=== PATIENT | male | born 1980 | race Caucasian/White ===

== ENCOUNTER 2020-04-01 11:29 | Emergency (ER) | payer OTHER, SELFPAY ==
--- NOTE | ~2020-04-01 | XR_ITS ---
EXAMINATION: XR chest 1V portable EXAM DATE: 04/01/2020 11:53 INDICATION: Shortness of breath. COVID positive. TECHNIQUE: Portable AP frontal chest x-ray was obtained. Comparison is made to prior examination from 11/03/2017. FINDINGS: Ill-defined nonconfluent right upper lobe airspace disease new compared to prior study, pro bably acute infectious process, clinical correlation. The lungs are otherwise clear. There are no pl eural effusions. The cardiomediastinal silhouette is within normal limits. There is no pneumothorax suspected. The bones and soft tissues are unremarkable. IMPRESSION: Patchy right upper lobe peripheral acute airspace disease. Reviewed, dictated and finalized at location A. ER ASSOCIATE
[2020-04-01 11:36] VITALS: BP 141/95; PULSE 80; RESP 18; TEMP 36.4; O2SAT 100
--- NOTE | 2020-04-01 13:17 | ED.GENADULT ---
HPI - General Adult General Chief complaint: Upper Respiratory Infection Stated complaint: covid +/low oxygen sat Time Seen by Provider: 04/01/20 12:04 History of Present Illness HPI narrative: Patient is a 40-year-old male who presents the ER with a low pulse oximetry reading. Reports at home he has a home pulse oximeter and he has had occasional readings in the 80s. He was diagnosed with COVID-19 11 days ago and has been trying to get cleared by the health department. Denies any new fevers or sweats or chills. He has had a cough that has been for the most part nonproductive. He feels like he has some congestion within his chest that he cannot fully evacuate. He has been using albuterol every 2-4 hours to help with his breathing. Related Data Home Medications Medication Instructions Recorded Confirmed cetirizine 10 mg tablet 10 mg PO DAILY 04/07/19 11/09/19 clomiphene citrate 50 mg tablet 25 mg PO DAILY tablet 04/07/19 11/09/19 esomeprazole magnesium 40 mg 40 mg PO DAILY 04/07/19 11/09/19 capsule,delayed release tadalafil 5 mg tablet 5 mg PO DAILY 04/07/19 11/09/19 Allergies Allergy/AdvReac Type Severity Reaction Status Date / Time clarithromycin Allergy Mild RECTAL Verified 11/09/19 08:38 BLEEDING fluticasone Allergy Unknown Unknown Verified 11/09/19 08:38 montelukast Allergy Unknown headaches Verified 11/09/19 08:38 salmeterol [Advair Diskus] Allergy Unknown Unknown Verified 11/09/19 08:38 ANESTHESIA Allergy Unknown Vomiting Uncoded 11/09/19 08:38 for days Review of Systems Review of Systems: All systems reviewed & are unremarkable except as noted in HPI and below Constitutional: Constitutional: Denies chills, Denies fever(s) and Denies weakness ENT: Denies nasal congestion and Denies sore throat Respiratory: Respiratory: Reports chest congestion, Reports cough, Reports dyspnea and Denies wheezing Gastrointestinal: Gastrointestinal: Denies abdominal pain, Denies nausea and Denies vomiting PMFSH Past Medical History Medical History (Updated 04/01/20 @ 13:30 by Cullen Devi MD) Benign hypertension H/O pyloric stenosis Hypogonadism Testicular cancer Surgical History Surgical History (Updated 04/01/20 @ 13:30 by Cullen Devi MD) H/O sinus surgery H/O splenectomy History of orchiectomy Hx of cholecystectomy Family History Family History Mother Heart disease Grandparent Breast cancer Mother Diabetes mellitus Hypertension Family history of elevated blood lipids Grandparent Carcinoma of colon Malignant neoplasm of prostate Father Colon polyp Other Family history of arthritis Family history of cardiovascular disease Social History Social History Smoking status: Never smoker Alcohol intake: never Substance use: never Gender identity (if verbalized by the patient): Male Agree to blood products: Yes Exam Narrative: Exam Narrative: GENERAL: Well-appearing, well-nourished, and in no acute distress. HEAD: Normocephalic, atraumatic. CHEST: Clear to auscultation. No respiratory distress. HEART: Regular rate and rhythm. Normal peripheral pulses. ABDOMEN: Soft, nontender, nondistended. EXTREMITIES: Normal range of motion. No edema. SKIN: Warm, dry, no rash. NEURO: Alert and oriented x3. PSYCH: Normal mood and affect. Course Course Emergency Course: Patient informed results. Feel he developed a secondary pneumonia related to his COVID-19 infection. Will be started on azithromycin which she reports he can tolerate without issue. Vital Signs Vital signs: Vital Signs Temperature 97.6 F 04/01/20 11:36 Pulse Rate 80 04/01/20 11:36 Respiratory Rate 18 04/01/20 11:36 Blood Pressure 141/95 H 04/01/20 11:36 Pulse Oximetry 100 04/01/20 11:36 Temperature 97.6 F 04/01/20 11:36 Pulse Rate 80 04/01/20 11:36 Respirat
[2020-04-01 13:34] VITALS: BP 145/97; PULSE 74; RESP 17; O2SAT 95
== END 2020-04-01 13:35 | disposition home or self-care (01) ==
PROVIDERS: Emergency Provider Emergency Medicine; PCP Family Medicine
DX: U07.1 COVID-19 (principal); J12.89 Other viral pneumonia; I10 Essential (primary) hypertension; Z85.47 Personal history of malignant neoplasm of testis; Z90.81 Acquired absence of spleen; Z90.79 Acquired absence of other genital organ(s)
CPT/HCPCS: 71045; 99283

== ENCOUNTER → 2020-04-18 11:12 | Outpatient (CLI) | payer OTHER, SELFPAY ==
--- NOTE | ~2020-04-18 | XR_ITS ---
XR chest 2V DATE: 04/18/2020 11:49 INDICATION: Wheezing TECHNIQUE: 2 views COMPARISON: 04/01/2020 portable AP chest FINDINGS: There is minimal residual infiltrate or atelectasis in the right upper lobe, substantially improved since 04/01/2020. Otherwise no pulmonary infiltrate or consolidation, pleural effusion or pu lmonary vascular congestion or pneumothorax. Normal heart size. No hilar or mediastinal enlargement. IMPRESSION: Nearly complete resolution right upper lobe infiltrate since 04/01/2020 Reviewed, dictated and finalized at location A. AL ASSISTANT INSTRUCTOR IMPRESSION: Nearly complete resolution right upper lobe infiltrate since 2019
== END ==
PROVIDERS: PCP Family Medicine; Visit Provider Family Medicine
DX: J18.9 Pneumonia, unspecified organism (principal); R06.2 Wheezing; R91.8 Other nonspecific abnormal finding of lung field
CPT/HCPCS: 71046

== ENCOUNTER → 2020-08-08 09:37 | Outpatient (CLI) | payer OTHER, SELFPAY ==
--- NOTE | ~2020-08-08 | XR_ITS ---
EXAMINATION: XR chest 2V 08/08/2020 09:53 INDICATION: Shortness of breath PROCEDURE: 2 view chest COMPARISON: 04/18/2020 FINDINGS: The lungs are clear. The cardiomediastinal silhouette is within normal limits. There are no pleural effusions. There is no pneumothorax suspected. IMPRESSION: 1: NO ACUTE CARDIOPULMONARY DISEASE. Reviewed, dictated and finalized at location B.
== END ==
PROVIDERS: PCP Family Medicine; Visit Provider Physician Assistant
DX: R06.02 Shortness of breath (principal)
CPT/HCPCS: 71046

== ENCOUNTER 2020-09-13 09:27 | Outpatient (CLI) | payer OTHER, SELFPAY ==
--- NOTE | 2020-09-13 12:43 | WPDPFTINT ---
PFT Procedure Performed PFT Procedure Performed Spirometry with Pre/Post Bronchodilator Plethysmography (Lung Vol) Diffusing Cap (DLCO) Flow Vol Loop PFT Interpretation This is a pulmonary function test with pre and post-bronchodilator spirometry, plethysmography and diffusing capacity. The test was performed and results interpreted in accordance with the 2019 and 2005 ATS/ERS Task Force guidelines respectively using the Global Lung Function Initiative-2012 reference equations. Patient demonstrated good effort and cooperation. Reproducibility criteria were met. The quality of the pre bronchodilator spirometry maneuver was Grade C and post bronchodilator spirometry maneuver was Grade A. Findings: Spirometry: Contour the inspiratory and expiratory flow tracing are normal. The pre bronchodilator FVC is 4.75 L, 88% predicted. The pre bronchodilator FEV1 is 3.69 L, 86% predicted. The FEV1: FVC ratio 78%. The post bronchodilator FEV1 is 5.02 representing a 6% increase. The post bronchodilator FEV1 is 4.14 L, representing a 12% increase. Plethysmography: The total lung capacity is 6.07 L, 85% predicted. The functional residual capacity is 1.95 L, 55% predicted. The residual volume is 1.29 L, 68% predicted. Diffusing capacity: The absolute diffusion capacity is 26.5, 80% predicted. The diffusing capacity corrected for alveolar volume is 4.58, 96% predicted. Impression: The spirometry is normal without evidence of an obstructive abnormality. There is significant improvement after inhaling a single dose of albuterol. There is a decreased functional residual capacity with a normal total lung capacity. This is an abnormal but nonspecific lung volume pattern. The diffusing capacity is normal. There are no prior studies for comparison
== END 2020-09-13 09:28 | disposition home or self-care (01) ==
PROVIDERS: PCP Family Medicine; Visit Provider Allergy & Immunology
DX: J45.40 Moderate persistent asthma, uncomplicated (principal)
CPT/HCPCS: 94060; 94726; 94729

== ENCOUNTER 2021-11-22 10:08 | Emergency (ER) | payer OTHER, SELFPAY ==
[2021-11-22] VITALS (21 sets, daily range): BP systolic 125–146; BP diastolic 85–99; PULSE 73–96; RESP 13–32; TEMP 36.4; O2SAT 94–99
--- NOTE | ~2021-11-22 | CT_ITS ---
EXAMINATION: CTA chest PE protocol DATE: 11/22/2021 14:23 INDICATION: Chest pain/discomfort TECHNIQUE: Computed tomography (CT) pulmonary angiogram of the chest was performed with 100 mL Omnipa que-350 intravenous contrast. Additional 3D reconstructions utilizing coronal maximum intensity proje ction (MIP) were performed. Automated exposure control and iterative reconstruction technique were em ployed. The dose-length product was 515.82 mGy-cm. COMPARISON: 03/17/2019 FINDINGS: Good contrast opacification of the pulmonary arteries. There is mild streak artifact from dense contr ast in the superior vena cava and right atrium. Mild scattered respiratory motion artifact most promi nent at the lung bases which does not significantly limit evaluation. No pulmonary embolism. Linear d iscoid atelectasis in the right middle lobe and in the left lower lobe. No pneumonia, pulmonary edema , pleural effusion or pneumothorax. Heart size is normal. No pericardial effusion. Thoracic aorta is normal in caliber with no dissection. No pathologically enlarged thoracic lymphadenopathy. Absent spl een. Cholecystectomy clips at the gallbladder fossa. Mild thoracolumbar spondylosis with likely physi ologic mild anterior wedging at T12 and L1. IMPRESSION: 1. Mild discoid atelectasis in the right middle and left lower lobes. No pulmonary embolism or other acute cardiopulmonary disease. Reviewed, dictated and finalized at location B. IMPRESSION: 1. Mild discoid atelectasis in the right middle and left lower lobes. No pulmon zackery embolism or other acute cardiopulmonary disease.
--- NOTE | ~2021-11-22 | XR_ITS ---
EXAMINATION: XR chest 2V DATE: 11/22/2021 10:33 INDICATION: Chest pain TECHNIQUE: PA and lateral views of the chest were obtained. COMPARISON: Chest radiograph dated 08/08/2020 FINDINGS: Linear discoid atelectasis at the lingula and right middle lobe. No other airspace opacities, pulmona ry edema, pleural effusion or pneumothorax. The cardiomediastinal silhouette is normal. Cholecystecto my clips in right upper quadrant. Mild spondylosis at the thoracolumbar junction. IMPRESSION: 1. Mild discoid atelectasis at the lingula and right middle lobe. Reviewed, dictated and finalized at location B.
--- NOTE | 2021-11-22 10:10 | ECG_ITS ---
Measurements Intervals Clarinda Rate: 88 P: 34 ME: 140 QRS: 9 QRSD: 96 T: 30 QT: 349 QTc: 423 Interpretive Statements SINUS RHYTHM DELAYED PRECORDIAL R/S TRANSITION MINIMAL Q WAVES- HIGH LATERAL LEADS BORDERLINE ECG Electronically Signed On 11-22-2021 11:10:57 CDT by Mega Kulkarni D.O.
--- NOTE | 2021-11-22 10:23 | ED.CHESTPAIN ---
HPI - Chest Pain General Chief Complaint: Chest Pain <Lor Summers PA-C - Last Filed: 11/22/21 19:16> Stated Complaint: chest pressure since last <Lor Summers PA-C - Last Filed: 11/22/21 19:16> Time Seen by Provider: 11/22/21 10:22 <Lor Summers PA-C - Last Filed: 11/22/21 19:16> Source: patient <Lor Summers PA-C - Last Filed: 11/22/21 19:16> Mode of arrival: ambulatory <VAUGHN Mccartney Last Filed: 11/22/21 19:16> Limitations: no limitations <VAUGHN Mccartney Last Filed: 11/22/21 19:16> History of Present Illness HPI narrative: Patient is a 41-year-old male who presents the ED with report of chest discomfort. Patient reports a history of SVT and last had an episode of this about 6 months ago. He does see Dr. Pendleton and saw him last week for routine appointment. He did not have any complaints at that time. Patient returned home from a long distance driving vacation with his family around 11/12. He states over the last couple days, he has had intermittent episodes of brief palpitations, only lasting a few seconds at a time. No chest discomfort with these episodes. Last night, around 5 PM he experienced an episode of palpitations, which he states lasted longer than usual, about 10 to 15 minutes. He noted his heart rate to be in the 90s per his apple watch at that time. He did experience chest heaviness/pressure/discomfort with this episode. Present in midsternal chest, radiates to his right-sided chest and up into his neck. He reported having persistent discomfort in his chest upon waking up this morning and with exerting himself, which prompted him to come to the ED for further evaluation. He also reports having some dyspnea on exertion. Denies any recent cough, abdominal pain, nausea, vomiting, fever, chills, back pain, BLE pain or edema, history of blood clots. Hx of HTN, no DM, HLD, smoking. <VAUGHN Mccartney Last Filed: 11/22/21 19:16> Related Data Home Medications: Home Medications Medication Instructions Recorded Confirmed cetirizine 10 mg tablet (Zyrtec) 10 mg PO DAILY 04/07/19 09/21/21 clomiphene citrate 50 mg tablet 25 mg PO DAILY 04/07/19 09/21/21 esomeprazole magnesium 40 mg 40 mg PO BID 04/07/19 09/21/21 capsule,delayed release (Nexium) fluticasone furoate 200 1 inh inhalation Q24H 05/21/21 09/21/21 mcg/actuation blister powder for inhalation (Arnuity Ellipta) losartan 25 mg tablet 50 mg PO DAILY 06/29/21 09/21/21 <Lor Summers PA-C - Last Filed: 11/22/21 19:16> Allergies/Adverse Reactions: Allergies Allergy/AdvReac Type Severity Reaction Status Date / Time clarithromycin Allergy Mild RECTAL Verified 11/22/21 10:51 BLEEDING fluticasone Allergy Unknown Unknown Verified 11/22/21 10:51 montelukast Allergy Unknown headaches Verified 11/22/21 10:51 salmeterol [Advair Diskus] Allergy Unknown Unknown Verified 11/22/21 10:51 ANESTHESIA Allergy Unknown Vomiting Uncoded 09/21/21 09:39 for days <Lor Summers PA-C - Last Filed: 11/22/21 19:16> Review of Systems Review of Systems: CONSTITUTIONAL: Denies fever, chills, or sweats. CARDIOVASCULAR: Reports midsternal chest pain, palpitations. Denies BLE edema. RESPIRATORY: Reports WOLF. Denies cough. GASTROINTESTINAL: Denies abdominal pain, nausea, vomiting. MUSCULOSKELETAL: Denies back pain, BLE pain. NEUROLOGIC: Denies headache, numbness, or weakness. <Lor Summers PA-C - Last Filed: 11/22/21 19:16> All systems reviewed & are unremarkable except as noted in HPI and below <Lor Summers PA-C - Last Filed: 11/22/21 19:16> [facility] Past Medical History Medical History: Medical History (Updated 11/22/21 @ 15:16 by Lor Summers PA-C) Benign hypertension H/O pyloric stenosis History of PSVT (paroxysmal supraventricular tachycardia) Hypogonadism Testicular cancer <Lor Summers PA-C - Last Filed: 11/22/21 19:16> Surgical History Surgical Hist
[2021-11-22] MEDS: ASPIRIN 81 MG CHEWABLE TABLET 324 MG PO (10:58)
[2021-11-22 11:08] LABS: Basophils Absolute Auto 0.1 K/mm3 (0.0-0.1); Basophils Percent Auto 0.7 % (0.2-1.2); Eosinophils Absolute Auto 0.1 K/mm3 (0-0.3); Eosinophils Percent Auto 0.8 % (0-4.4); Hematocrit 39.7 % (42.0-52.0); Hemoglobin 12.9 g/dL (14.0-18.0); Immature Granulocyte Absolute 0.03 K/mm3 (0.00-0.031); Immature Granulocyte Percent A 0.4 % (0-0.5); Lymphocytes Absolute Auto 2.97 K/mm3 (0.9-3.2); Mean Corpuscular HGB Conc 32.5 g/dl (32-36); Mean Corpuscular Volume 89.2 fl (80-100); Mean Platelet Volume 9.2 fl (7.4-10.4); Monocytes Absolute Auto 1.2 K/mm3 (0.1-0.6); Monocytes Percent Auto 14.8 % (2.6-8.5); Neutrophils Absolute Auto 3.9 K/mm3 (1.3-6.7); Neutrophils Percent Auto 47.3 % (45.5-73.1); Platelet Count Result 460 k/mm3 (150-375); Red Blood Count 4.45 M/mm3 (4.6-6.20); Red Cell Distribution Width 13.6 % (11.5-14.5); White Blood Count 8.3 K/mm3 (4.5-10.0)
[2021-11-22 11:21] LABS: Prothrombin Time 13.2 Seconds (11.1-14.7)
[2021-11-22 11:22] LABS: Partial Thromboplastin Time 26.2 SECONDS (22.3-36.8)
[2021-11-22 11:25] LABS: Alanine Aminotransferase 26 U/L (6-50); Albumin Level 4.2 g/dL (3.5-5.1); Alkaline Phosphatase 69 U/L (38-126); Anion Gap 5 mmol/L (8-16); Aspartate Amino Transferase 23 U/L (17-59); Bilirubin,Total 0.3 mg/dL (0.2-1.3); Blood Urea Nitrogen 11 mg/dL (9-20); Calcium 8.9 mg/dL (8.4-10.2); Carbon Dioxide 28 mmol/L (22-30); Chloride 104 mmol/L (98-107); Estimated CRCL calculation 91 ml/min; Estimated Glomerular Filt Rate > 60; Glucose 102 mg/dL (65-110); Lipase 91 U/L (23-300); Potassium 3.9 mmol/L (3.4-5.0); Sodium 137 mmol/L (137-145)
[2021-11-22 11:39] LABS: Troponin I < 0.012 ng/mL (0.000-0.034)
[2021-11-22 12:04] LABS: D Dimer 0.46 ug/mL (<0.48)
[2021-11-22 13:29] LABS: Troponin I < 0.012 ng/mL (0.000-0.034)
== END 2021-11-22 15:30 | disposition home or self-care (01) ==
PROVIDERS: Emergency Provider Emergency Medicine; PCP Family Medicine
DX: R07.89 Other chest pain (principal); R00.2 Palpitations; I10 Essential (primary) hypertension; Z85.47 Personal history of malignant neoplasm of testis; Z90.81 Acquired absence of spleen; Z90.79 Acquired absence of other genital organ(s); R94.31 Abnormal electrocardiogram [ECG] [EKG]
CPT/HCPCS: 36415; 71046; 71275; 80053; 83690; 84484; 85025; 85380; 85610; 85730; 93005; 99284; A9270; Q9967

== ENCOUNTER 2021-12-08 11:19 | Emergency (ER) | payer OTHER, SELFPAY ==
--- NOTE | ~2021-12-08 | XR_ITS ---
EXAMINATION: XR chest 2V DATE: 12/08/2021 13:24 INDICATION: 2 months of productive cough TECHNIQUE: frontal and lateral views of the chest were obtained. COMPARISON: Chest radiograph dated 11/22/2021 FINDINGS: The lungs remain clear with no focal airspace opacities, pulmonary edema, pleural effusion or pneumot horax. The cardiomediastinal silhouette is normal. Cholecystectomy clips in right upper quadrant. Mil d thoracic and lumbar spondylosis. IMPRESSION: 1. No acute cardiopulmonary disease. Reviewed, dictated and finalized at location A.
[2021-12-08 11:26] VITALS: BP 139/92; PULSE 90; RESP 18; TEMP 36.8; O2SAT 96
--- NOTE | 2021-12-08 13:01 | ED.URI ---
HPI - URI/Sore Throat General Chief Complaint: Upper Respiratory Infection Stated Complaint: cough History of Present Illness HPI Narrative: 41-year-old male who presents to [facility] with complaints of cough for 2 months duration, he has taken Delsym cough syrup which has been helping till the past 2 days. Last night patient states coughing became worse and he feels somewhat short of breath today. Patient reports that he had COVID in March of 2020 and he had one dose of COVID vaccine on January with some complication within 48 hours after immunization. of SVT and possible myocarditis. Patient denies any body aches, no fevers, chills or sweats. MD elicited complaint: cough and other (some shortness of breath) Treatments prior to arrival: other (delsym cough syrup) Related Data Home Medications Medication Instructions Recorded Confirmed cetirizine 10 mg tablet (Zyrtec) 10 mg PO DAILY 04/07/19 12/08/21 clomiphene citrate 50 mg tablet 25 mg PO DAILY 04/07/19 12/08/21 esomeprazole magnesium 40 mg 40 mg PO BID 04/07/19 12/08/21 capsule,delayed release (Nexium) fluticasone furoate 200 1 inh inhalation Q24H 05/21/21 12/08/21 mcg/actuation blister powder for inhalation (Arnuity Ellipta) losartan 25 mg tablet 50 mg PO DAILY 06/29/21 12/08/21 Allergies Allergy/AdvReac Type Severity Reaction Status Date / Time clarithromycin Allergy Mild RECTAL Verified 12/08/21 13:02 BLEEDING fluticasone Allergy Unknown Unknown Verified 12/08/21 13:02 montelukast Allergy Unknown headaches Verified 12/08/21 13:02 salmeterol [Advair Diskus] Allergy Unknown Unknown Verified 12/08/21 13:02 ANESTHESIA Allergy Unknown Vomiting Uncoded 12/08/21 13:02 for days Review of Systems Review of Systems: CONSTITUTIONAL: Denies fever, chills, or sweats. EYES: Denies visual changes, redness, or discharge. ENT: Denies rhinorrhea, congestion, sore throat, or otalgia. CARDIOVASCULAR: Denies chest pain, palpitations, or edema. RESPIRATORY: Positive for cough or dyspnea. GASTROINTESTINAL: Denies abdominal pain, nausea, vomiting, or diarrhea. GENITOURINARY: Denies dysuria or hematuria. SKIN: Denies rash or itching. MUSCULOSKELETAL: Denies back pain, joint pain, or myalgia. NEUROLOGIC: Denies headache, numbness, or weakness. PSYCHIATRIC: Denies anxiety or depression. All systems reviewed & are unremarkable except as noted in HPI and below PMFSH Past Medical History Medical History (Updated 12/09/21 @ 00:00 by Graham John) Benign hypertension H/O pyloric stenosis History of PSVT (paroxysmal supraventricular tachycardia) Hypogonadism Testicular cancer Surgical History Surgical History H/O sinus surgery H/O splenectomy History of orchiectomy Hx of cholecystectomy Family History Family History (Reviewed 09/21/21 @ 09:38 by Camila Reyes [facility]) Mother Heart disease Grandparent Breast cancer Mother Diabetes mellitus Hypertension Family history of elevated blood lipids Grandparent Carcinoma of colon Malignant neoplasm of prostate Father Colon polyp Other Family history of arthritis Family history of cardiovascular disease Social History Social History (Updated 11/22/21 @ 11:10 by Lor Summers PA-C) Smoking status: Never smoker Alcohol intake: never Substance use: never Gender identity (if verbalized by the patient): Male Agree to blood products: Yes Comments At time of signature, agree with nursing past medical, surgical, social and family history. There is no relevant family history pertinent to the presenting complaint Exam Narrative: GENERAL: Well-appearing, well-nourished, and in no acute distress. HEAD: Normocephalic, atraumatic. EYES: PERRLA and EOMI. ENT: Nares clear, no rhinorrhea or epistaxis. Mucous membranes moist.TM's normal with good light reflex, throat pink with no lesions or exudates or tonsil swelling NECK:
== END 2021-12-08 14:35 | disposition home or self-care (01) ==
PROVIDERS: Emergency Provider Registered Nurse
DX: J06.9 Acute upper respiratory infection, unspecified (principal); Z20.822 Contact with and (suspected) exposure to COVID-19; I10 Essential (primary) hypertension; Z85.47 Personal history of malignant neoplasm of testis
CPT/HCPCS: 71046; 87426; 99213; C9803; G0463

== ENCOUNTER 2021-12-24 10:49 | Emergency (ER) | payer OTHER, SELFPAY ==
[2021-12-24 10:50] VITALS: BP 136/75; PULSE 100; RESP 20; TEMP 36.6; O2SAT 97
--- NOTE | 2021-12-24 10:56 | ED.ALLEREA ---
HPI - Allergic Reaction General Chief complaint: Allergic Reaction Stated complaint: Allergic reaction History of Present Illness HPI narrative: 41-year-old male presents the emergency room for evaluation of allergic reaction. 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 Patient states he has been getting weekly allergy injections since February. Patient states that they did not change the vials or the dosing. Patient was given 2 epinephrine injections and 50 of Benadryl prior to arrival. Presently patient states that he is feeling better. Related Data Home Medications Medication Instructions Recorded Confirmed cetirizine 10 mg tablet (Zyrtec) 10 mg PO DAILY 04/07/19 12/08/21 clomiphene citrate 50 mg tablet 25 mg PO DAILY 04/07/19 12/08/21 esomeprazole magnesium 40 mg 40 mg PO BID 04/07/19 12/08/21 capsule,delayed release (Nexium) fluticasone furoate 200 1 inh inhalation Q24H 05/21/21 12/08/21 mcg/actuation blister powder for inhalation (Arnuity Ellipta) losartan 25 mg tablet 50 mg PO DAILY 06/29/21 12/08/21 Allergies Allergy/AdvReac Type Severity Reaction Status Date / Time clarithromycin Allergy Mild RECTAL Verified 12/08/21 13:02 BLEEDING fluticasone Allergy Unknown Unknown Verified 12/08/21 13:02 montelukast Allergy Unknown headaches Verified 12/08/21 13:02 salmeterol [Advair Diskus] Allergy Unknown Unknown Verified 12/08/21 13:02 ANESTHESIA Allergy Unknown Vomiting Uncoded 12/08/21 13:02 for days Review of Systems Review of Systems: CONSTITUTIONAL: Denies fever, chills, or sweats. EYES: Denies visual changes, redness, or discharge. ENT: Denies rhinorrhea, congestion, sore throat, or otalgia. CARDIOVASCULAR: Denies chest pain, palpitations, or edema. RESPIRATORY: Reports dyspnea GASTROINTESTINAL: Denies abdominal pain, nausea, vomiting, or diarrhea. GENITOURINARY: Denies dysuria or hematuria. SKIN: Reports rash to chest MUSCULOSKELETAL: Denies back pain, joint pain, or myalgia. NEUROLOGIC: Denies headache, numbness, dizziness, or weakness. PSYCHIATRIC: Denies anxiety or depression. [facility] Past Medical History Medical History Benign hypertension H/O pyloric stenosis History of PSVT (paroxysmal supraventricular tachycardia) Hypogonadism Testicular cancer Surgical History Surgical History H/O sinus surgery H/O splenectomy History of orchiectomy Hx of cholecystectomy Family History Family History Mother Heart disease Grandparent Breast cancer Mother Diabetes mellitus Hypertension Family history of elevated blood lipids Grandparent Carcinoma of colon Malignant neoplasm of prostate Father Colon polyp Other Family history of arthritis Family history of cardiovascular disease Social History Social History Smoking status: Never smoker Alcohol intake: never Substance use: never Gender identity (if verbalized by the patient): Male Agree to blood products: Yes Exam Narrative: GENERAL: Well-appearing, well-nourished, no physical limitations, and in no acute distress. HEAD: Normocephalic, atraumatic. EYES: Conjunctivae normal, PERRLA and EOMI. CHEST: Clear to auscultation. No respiratory distress. No wheezes rales or rhonchi. No tenderness. HEART: Tachycardic rate and regular rhythm. No murmur heard. Normal peripheral pulses. EXTREMITIES: Normal range of motion. No edema. No clubbing or cyanosis SKIN: Urticaria noted to anterior chest NEURO: No focal deficits. Alert and oriented x3. MAEW. CN's II-XI intact bilaterally, normal gait PSYCH: Cooperative. Normal mood and affect. Course Vital Sig
[2021-12-24] MEDS: SODIUM CHLORIDE 0.9% IV 1,000 ML 999 ML IV CONT (11:08)
[2021-12-24] MEDS: FAMOTIDINE 20 MG/2 ML VIAL IV PUSH (11:09)
[2021-12-24] MEDS: methylPREDNISolone SOD SUCC 125 MG VIAL IV PUSH (11:09)
--- NOTE | 2021-12-24 11:11 | PC.NURSE ---
Patient report received from QUINTIN White. All questions answered and care of patient assumed
[2021-12-24 11:49] VITALS: PULSE 98; O2SAT 99
[2021-12-24 12:03] VITALS: PULSE 103; RESP 23
--- NOTE | 2021-12-24 12:10 | PC.NURSE ---
Patient ambulatory to the BR without difficulty. Reports all allergic reaction symptoms have resolved. Denies SOB, CP, difficulty swallowing. VSS.
[2021-12-24 12:15] VITALS: PULSE 99; RESP 29; O2SAT 98
[2021-12-24 13:24] VITALS: BP 142/82; PULSE 97; RESP 22; O2SAT 96
== END 2021-12-24 13:24 | disposition home or self-care (01) ==
PROVIDERS: Emergency Provider Nurse Practitioner Family; PCP Family Medicine
DX: R06.02 Shortness of breath (principal); T50.905A Adverse effect of unspecified drugs, medicaments and biological substances, initial encounter; I10 Essential (primary) hypertension
CPT/HCPCS: 96361; 96374; 96375; 99284; J2930; J7030

== ENCOUNTER 2022-05-21 12:03 | Emergency (ER) | payer OTHER, SELFPAY ==
--- NOTE | ~2022-05-21 | XR_ITS ---
EXAMINATION: XR chest 2V DATE: 05/21/2022 12:42 INDICATION: Chest pain TECHNIQUE: PA and lateral views of the chest are obtained. COMPARISON: 12/08/2021 FINDINGS: There is mild atelectasis of the lung bases. No pleural effusion or pneumothorax. The cardi omediastinal silhouette is normal. There is mild thoracic spondylosis. Surgical clips in the right up per quadrant are likely from prior cholecystectomy. IMPRESSION: 1. Mild atelectasis of the lung bases. Reviewed, dictated and finalized at location L. TH PROFESSOR
--- NOTE | 2022-05-21 12:05 | ECG_ITS ---
Measurements Intervals [place] Rate: 88 P: 29 ME: 140 QRS: 9 QRSD: 96 T: 29 QT: 351 QTc: 427 Interpretive Statements SINUS RHYTHM NORMAL ECG COMPARED TO ECG 11/22/2021 10:13:53 NO SIGNIFICANT CHANGES Electronically Signed On 05-21-2022 13:00:54 INSTITUTE DIRECTOR by Mega Kulkarni D.O.
[2022-05-21 12:20] LABS: Basophils Percent Auto 0.5 % (0.2-1.2); Eosinophils Percent Auto 0.4 % (0-4.4); Hematocrit 44.9 % (42.0-52.0); Hemoglobin 14.4 g/dL (14.0-18.0); Immature Granulocyte Absolute 0.02 K/mm3 (0.00-0.031); Immature Granulocyte Percent A 0.2 % (0-0.5); Lymphocytes Absolute Auto 3.33 K/mm3 (0.9-3.2); Mean Corpuscular HGB Conc 32.1 g/dl (32-36); Mean Corpuscular Hemoglobin 28.9 pg (26-34); Monocytes Percent Auto 11.8 % (2.6-8.5); Neutrophils Absolute Auto 3.7 K/mm3 (1.3-6.7); Neutrophils Percent Auto 46.1 % (45.5-73.1); Platelet Count Result 484 k/mm3 (150-375); Red Blood Count 4.99 M/mm3 (4.6-6.20); Red Cell Distribution Width 14.1 % (11.5-14.5); White Blood Count 8.1 K/mm3 (4.5-10.0)
[2022-05-21 12:30] VITALS: BP 136/94; PULSE 88; RESP 16; TEMP 36.7; O2SAT 98
[2022-05-21 12:36] LABS: Alanine Aminotransferase 38 U/L (6-50); Albumin Level 4.5 g/dL (3.5-5.1); Alkaline Phosphatase 82 U/L (38-126); Anion Gap 4 mmol/L (8-16); Aspartate Amino Transferase 28 U/L (17-59); Bilirubin,Total 0.4 mg/dL (0.2-1.3); Blood Urea Nitrogen 17 mg/dL (9-20); Calcium 9.2 mg/dL (8.4-10.2); Carbon Dioxide 31 mmol/L (22-30); Chloride 103 mmol/L (98-107); Estimated CRCL calculation 90 ml/min; Estimated Glomerular Filt Rate > 60; Glucose 94 mg/dL (65-110); Potassium 4.4 mmol/L (3.4-5.0); Sodium 138 mmol/L (137-145)
[2022-05-21 12:46] LABS: Troponin I < 0.012 ng/mL (0.000-0.034)
[2022-05-21 13:48] VITALS: BP 139/84; PULSE 90; RESP 17; O2SAT 98
[2022-05-21 13:49] VITALS: PULSE 87; RESP 20; O2SAT 98
[2022-05-21 14:00] VITALS: PULSE 85; RESP 19; O2SAT 96
[2022-05-21 14:01] VITALS: BP 129/87; PULSE 84; RESP 22; O2SAT 98
--- NOTE | 2022-05-21 14:11 | ED.CHESTPAIN ---
HPI - Chest Pain General Chief Complaint: Chest Pain Stated Complaint: chest pain Time Seen by Provider: 05/21/22 13:47 History of Present Illness HPI narrative: Patient is a 42-year-old male with a history of hypertension presenting with chest pain. Patient states that for the last couple of weeks he has had intermittent left-sided chest discomfort. States that its not actually pain, feels more like a tightness or soreness. States that he has been monitoring his blood pressure and over the last several days it has been rising into the 140s over 100s. Patient states that he had a little viral infection over the weekend which he has recovered from but he called his patient scheduling manager today who advised to come in for evaluation given the ongoing chest pain. Currently, the patient denies any complaints. He denies shortness of breath. He does report intermittent chronic palpitations. No fevers or chills, numbness or weakness, lightheadedness, abdominal pain, nausea or vomiting, diarrhea, leg swelling, back pain. Related Data Home Medications Medication Instructions Recorded Confirmed cetirizine 10 mg tablet (Zyrtec) 10 mg PO DAILY 04/07/19 04/24/22 clomiphene citrate 50 mg tablet 25 mg PO DAILY 04/07/19 04/24/22 esomeprazole magnesium 40 mg 40 mg PO BID 04/07/19 04/24/22 capsule,delayed release (Nexium) fluticasone furoate 200 1 inh inhalation Q24H 05/21/21 04/24/22 mcg/actuation blister powder for inhalation (Arnuity Ellipta) azelastine-fluticasone 137 mcg-50 1 spray intranasal BID 01/02/22 04/24/22 mcg/spray nasal spray tadalafil 5 mg tablet 5 mg PO ONCE 01/02/22 04/24/22 losartan 50 mg tablet 50 mg PO DAILY 02/22/22 04/24/22 verapamil 180 mg 24 hr 1 ea PO DAILY 02/22/22 04/24/22 capsule,extended release Allergies Allergy/AdvReac Type Severity Reaction Status Date / Time clarithromycin Allergy Mild RECTAL Verified 04/23/22 10:33 BLEEDING fluticasone Allergy Unknown Unknown Verified 04/23/22 10:33 montelukast Allergy Unknown headaches Verified 04/23/22 10:33 salmeterol [Advair Diskus] Allergy Unknown Unknown Verified 04/23/22 10:33 ANESTHESIA Allergy Unknown Vomiting Uncoded 04/23/22 10:33 for days Review of Systems Review of Systems: All systems reviewed & are unremarkable except as noted in HPI and below PMFSH Past Medical History Medical History Benign hypertension H/O pyloric stenosis History of PSVT (paroxysmal supraventricular tachycardia) Hypogonadism Testicular cancer Surgical History Surgical History H/O sinus surgery H/O splenectomy History of orchiectomy Hx of cholecystectomy Family History Family History Mother Heart disease Grandparent Breast cancer Mother Diabetes mellitus Hypertension Family history of elevated blood lipids Grandparent Carcinoma of colon Malignant neoplasm of prostate Father Colon polyp Other Family history of arthritis Family history of cardiovascular disease Social History Social History Smoking status: Never smoker Alcohol intake: never Substance use: never Gender identity (if verbalized by the patient): Male Agree to blood products: Yes Exam Narrative: GENERAL: Well-appearing, and in no acute distress. Pleasant and cooperative HEAD: Normocephalic, atraumatic. EYES: PERRLA and EOMI. ENT: Nares clear, no rhinorrhea or epistaxis. Mucous membranes moist. NECK: Supple. CHEST: Clear to auscultation. No respiratory distress. HEART: Regular rate and rhythm. No murmur heard. Normal peripheral pulses. ABDOMEN: Soft, nontender, nondistended, normal active bowel sounds. EXTREMITIES: Normal range of motion. No edema. SKIN: Warm, dry, no rash. NEURO: No focal deficits. Alert and oriented x3. PSYCH: Lynette
[2022-05-21 14:34] VITALS: BP 129/87; PULSE 92; RESP 16; O2SAT 97
== END 2022-05-21 14:34 | disposition home or self-care (01) ==
PROVIDERS: Emergency Provider Emergency Medicine; PCP Family Medicine
DX: R07.89 Other chest pain (principal); I10 Essential (primary) hypertension
CPT/HCPCS: 36415; 71046; 80053; 84484; 85025; 93005; 99284

== ENCOUNTER 2023-09-26 10:04 | Outpatient (CLI) | payer OTHER, SELFPAY ==
[2023-09-26 10:18] LABS: Basophils Absolute Auto 0.1 K/mm3 (0.0-0.1); Basophils Percent Auto 0.6 % (0.2-1.2); Eosinophils Absolute Auto 0.1 K/mm3 (0-0.3); Eosinophils Percent Auto 1.6 % (0-4.4); Hematocrit 39.4 % (42.0-52.0); Hemoglobin 12.9 g/dL (14.0-18.0); Immature Granulocyte Absolute 0.02 K/mm3 (0.00-0.031); Immature Granulocyte Percent A 0.2 % (0-0.5); Lymphocytes Absolute Auto 3.89 K/mm3 (0.9-3.2); Mean Corpuscular HGB Conc 32.7 g/dl (32-36); Mean Corpuscular Hemoglobin 29.1 pg (26-34); Mean Corpuscular Volume 88.7 fl (80-100); Mean Platelet Volume 8.9 fl (7.4-10.4); Monocytes Absolute Auto 1.3 K/mm3 (0.1-0.6); Monocytes Percent Auto 14.7 % (2.6-8.5); Neutrophils Absolute Auto 3.3 K/mm3 (1.3-6.7); Neutrophils Percent Auto 37.9 % (45.5-73.1); Platelet Count Result 480 k/mm3 (150-375); Red Blood Count 4.44 M/mm3 (4.6-6.20); Red Cell Distribution Width 13.3 % (11.5-14.5); White Blood Count 8.6 K/mm3 (4.5-10.0)
[2023-09-26 10:23] LABS: Blood Urea Nitrogen 10 mg/dL (8-26); Carbon Dioxide 27 mmol/L (22-30); Chloride 103 mmol/L (98-109); Estimated Glomerular Filt Rate > 60; Glucose 88 mg/dL (70-105); Ionized Calcium (POC) 1.21 mmol/L (1.11-1.31); Potassium 4.2 mmol/L (3.5-4.9); Sodium 140 mmol/L (138-146)
[2023-09-26 11:58] LABS: Alanine Aminotransferase 29 U/L (6-50); Albumin Level 4.4 g/dL (3.5-5.1); Alkaline Phosphatase 83 U/L (38-126); Anion Gap 7 mmol/L (4-12); Aspartate Amino Transferase 35 U/L (17-59); Bilirubin,Total 0.3 mg/dL (0.2-1.3); Blood Urea Nitrogen 12 mg/dL (9-20); Carbon Dioxide 27 mmol/L (22-30); Chloride 105 mmol/L (98-107); Estimated Glomerular Filt Rate > 60; Glucose 84 mg/dL (65-110); Potassium 4.2 mmol/L (3.4-5.0); Sodium 139 mmol/L (137-145)
== END 2023-09-26 10:05 | disposition home or self-care (01) ==
LOC: ANHLAB 10:06
PROVIDERS: PCP Family Medicine; Visit Provider Internal Medicine Hematology & Oncology
DX: D50.9 Iron deficiency anemia, unspecified (principal)
CPT/HCPCS: 36415; 80047; 80053; 85025

== ENCOUNTER 2024-03-03 11:59 | Outpatient (RCR) | payer OTHER, SELFPAY ==
--- NOTE | 2024-03-03 14:47 | STOPEVAL1 ---
Assessment and note entered by Liz Virgen POWERHOUSE ATTENDANT Evaluation Information Assessment Status Evaluation ICD-10 Condition Codes (ST) Dysphonia R49.0 Reported Pain Level Pain Score 0: Self Report Assessment ST Clinical Summary VOICE EVALUATION Patient was presented with Voice Evaluation to assess patient's current vocal quality and determine if he would benefit from direct Speech Therapy. Patient reports he was recently diagnosed with bilateral vocal nodules. 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 He stated that he began noticing his voice was raspy earlier this year but less than one year ago and that other family members, close friends, and even the children at the program have noticed that his voice was raspy. He stated one person even noticed and commented to him that he is singing two octaves (diplophonia). Patient's voice was analyzed and generally patient 's loudness across a variety of tasks was 74-78 decibels when average loudness range for this room is 68-74 decibels. Additionally, his average voice pitch/frequency was 117 hertz at the conversational level; the average male frequency is from 100-120 and therefore patient is within normal limits. When therapist brought up the increased vocal loudness, this patient stated that many people comment about his loudness and ability to project his voice, just like his mother. (which he described as very loud). Patient did demonstrate ability to decrease the pitch to 73 decibel avg. to 73 decibel average at the conversational level after this was pointed out. Patient will be seen twice weekly x8 visits to address vocal hygiene program, vocal relaxation techniques, changing pitch, if needed, and use of yawn-sigh technique/easy onset to reduce the stress on the vocal cords. Patient was instructed in how the vocal cords work, use of vocal relaxation techniques, and vocal hygiene program today. Thank you for this referral. Plan of Care Interventions Treatment of Voice ST Services Indicated Yes Treatment Frequency and 2xweekly/8 visits. Duration These treatments will address the objective and functional deficits as defined above. The patient will be advanced safely and appropriately in order for the patient to progress towards his/her prior level of function. Additional exercises will be introduced and as well as a comprehensive home exercise program upon discharge, if needed, ?to ensure carryover of functional gains achieved in the clinic. This treatment plan has been reviewed and agreement upon by the patient.
--- NOTE | 2024-03-03 14:53 | STOPEVAL1 ---
Assessment and note entered by Liz Virgen TRAINING SYSTEMS OFFICER Evaluation Information Assessment Status Evaluation ICD-10 Condition Codes (ST) Dysphonia R49.0 Reported Pain Level Pain Score 0: Self Report Assessment ST Clinical Summary VOICE EVALUATION Patient was presented with Voice Evaluation to assess patient's current vocal quality and determine if he would benefit from direct Speech Therapy. Patient reports he was recently diagnosed with bilateral vocal nodules. 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 He stated that he began noticing his voice was raspy earlier this year but less than one year ago and that other family members, close friends, and even the children at the program have noticed that his voice was raspy. He stated one person even noticed and commented to him that he is singing two octaves (diplophonia). Patient's voice was analyzed and generally patient's loudness across a variety of tasks was 74-78 decibels when average loudness range for this room is 68-74 decibels. Additionally, his average voice pitch/frequency was 117 hertz at the conversational level; the average male frequency is from 100-120 and therefore patient is within normal limits. When therapist brought up the increased vocal loudness, this patient stated that many people comment about his loudness and ability to project his voice, just like his mother (whom he described as very loud). He did demonstrate ability to decrease the pitch to 73 decibel average at within the appropriate conversational level after this was pointed out. Patient will be seen twice weekly x8 visits to address vocal hygiene program, vocal relaxation techniques, changing pitch, if needed, and use of yawn-sigh technique/easy onset to reduce the stress on the vocal cords. Patient was instructed in how the vocal cords work, use of vocal relaxation techniques, and vocal hygiene program today. Thank you for this referral. Plan of Care Interventions Treatment of Voice ST Services Indicated Yes Treatment Frequency and 2xweekly/8 visits. Duration These treatments will address the objective and functional deficits as defined above. The patient will be advanced safely and appropriately in order for the patient to progress towards his/her prior level of function. Additional exercises will be introduced and as well as a comprehensive home exercise program upon discharge, if needed, ?to ensure carryover of functional gains achieved in the clinic. This treatment plan has been reviewed and agreement upon by the patient.
--- NOTE | 2024-03-15 15:06 | STOPDC ---
Assessment and note entered by Liz Virgen PHILOSOPHY PROFESSOR Evaluation Information Assessment Status Discharge - Pt Not Presen Assessment ST Clinical Summary DISCHARGE SUMMARY Patient was seen for one evaluation and then instructed in the use of vocal hygiene program and tasks and strategies to use to reduce stress on the vocal folds and therefore reduce presence of vocal nodules. Patient voiced and demonstrated good understanding of results and recommendations. Patient scheduled additional sessions for further instruction of specific techniques to reduce stress on the vocal cords however he cancelled the additional treatment sessions, telling our clerical staff that the information provided at the first treatment session was working and he did not feel he could continue additional treatments due to his work schedule. Patient is discharged with education/instruction completed. Patient is welcome to return to direct treatment sessions should issues persist and he feel direct treatment would be necessary to effect a change. Thank you for this referral. Plan of Care ST Services Indicated No
== END 2024-03-16 10:12 | disposition home or self-care (01) ==
LOC: ANHST 11:59
PROVIDERS: PCP Family Medicine
DX: R49.0 Dysphonia (principal); J38.2 Nodules of vocal cords
CPT/HCPCS: 92507; 92524

== ENCOUNTER 2024-11-08 01:53 | Day surgery (SDC) | payer OTHER, SELFPAY ==
[2024-10-21 10:06] VITALS: BMI 31.6
[2024-11-08 06:22] VITALS: BP 145/91; PULSE 88; RESP 18; TEMP 36.4; O2SAT 94; BMI 31.4
[2024-11-08] MEDS: LACTATED RINGERS 1,000 ML 150 ML IV CONT (06:30)
--- NOTE | 2024-11-08 06:46 | P.PNAN_ITS ---
Anes - Initial Pre Proc Eval Procedure: Operation Date: 11/08/24 07:30 Proposed Procedures p Screening Colonoscopy - Frantz Pearson MD Date/Time: 11/08/24 06:46 Surgeon: Frantz Pearson MD Pre Op Diagnosis: screening for malignant neoplasm of Patient Data Age: 44 Gender: M Height: 1.78 m Weight: 99.5 kg Last Vital Signs Temp 36.4 C 11/08/24 06:22 Pulse 88 11/08/24 06:22 Resp 18 11/08/24 06:22 BP 145/91 H 11/08/24 06:22 Pulse Ox 94 11/08/24 06:22 O2 Del Method Room Air 11/08/24 06:22 Allergies Allergy/AdvReac Type Severity Reaction Status Date / Time clarithromycin Allergy Mild RECTAL Verified 11/08/24 06:19 BLEEDING fluticasone Allergy Unknown Unknown Verified 11/08/24 06:19 montelukast Allergy Unknown headaches Verified 11/08/24 06:19 salmeterol (Advair Diskus) Allergy Unknown Unknown Verified 11/08/24 06:19 ANESTHESIA Allergy Unknown Vomiting Uncoded 11/08/24 06:19 for days Home Medications ?Medication ?Instructions ?Recorded ?Confirmed ?Type clomiphene citrate 50 mg tablet 25 mg PO DAILY 04/07/19 10/21/24 History esomeprazole magnesium 40 mg 40 mg PO BID 04/07/19 11/08/24 History capsule,delayed release (Nexium) tadalafil 5 mg tablet 5 mg PO ONCE 01/02/22 10/21/24 History losartan 50 mg tablet 50 mg PO DAILY 02/22/22 10/21/24 History benzonatate 200 mg capsule See Rx Instructions .Route 05/04/24 10/21/24 Rx .COMPLEX #60 caps loratadine-pseudoephedrine ER 10 1 tablet PO DAILY #90 tabs 09/16/24 10/21/24 Rx mg-240 mg tablet,extended bauflax13mm (Claritin-D 24 Hour) fluconazole 150 mg tablet 150 mg PO WEEKLY #4 tabs 09/21/24 10/21/24 Rx nystatin 100,000 unit/gram topical 1 applic topical DAILY #30 grams 09/21/24 10/21/24 Rx cream azelastine 137 mcg-fluticasone 50 See Rx Instructions .Route 09/28/24 10/21/24 Rx mcg/spray nasal spray .COMPLEX #23 grams metoprolol succinate 100 mg 100 mg PO DAILY #90 tabs 09/28/24 10/21/24 Rx tablet,extended release 24 hr triamterene 37.5 See Rx Instructions .Route 09/28/24 10/21/24 Rx mg-hydrochlorothiazide 25 mg tablet .COMPLEX #45 tabs Patient hx anesthesia problems: none Family hx anesthesia problems: none Results Review: All pre-operative results and documents have been reviewed as part of the pre- operative evaluation. [facility] Past Medical History Medical History History of PSVT (paroxysmal supraventricular tachycardia) COVID-19 positive 03-22-20 Testicular cancer Hypogonadism H/O pyloric stenosis Surgical History Surgical History History of orchiectomy H/O sinus surgery Hx of cholecystectomy H/O splenectomy Family History Family History Mother Heart disease Grandparent Breast cancer Mother Diabetes mellitus Hypertension Family history of elevated blood lipids Grandparent Carcinoma of colon Malignant neoplasm of prostate Father Colon polyp Other Family history of arthritis Family history of cardiovascular disease Social History Social History Smoking status: Never smoker Alcohol intake: never Substance use type: does not use Lack of Transportation: No Lack of Food: Never True Current Housing: I Have Housing Concerned About Future Housing: No Difficulty Paying Gas/Electric Bills: No Difficulty Paying for Meds: No Currently Unemployed: No Education: Bachelor's Degree Difficulty w/ Childcare or Family Care: No Living arrangements: with family Gender identity (if verbalized by the patient): Male Spiritual care concerns: No Agree to blood products: Yes Anes - Eval Final PreProcedure Day of Procedure 11/08/24 06:46 Patient weight: obese Heart: regular rate and rhythm Lungs: clear to auscultation Airway: Mallampati scale class 1 Neurological: alert and oriented Last oral intake: >/= 8 hours ASA classification: III Emergent: no Anesthetic plan: proceed Anesthesia type and monitoring: general GIVS and standard monitoring Results Review: All pre-operative results and documents have been reviewed as part of the pre- operative evaluation. Informed Consent: The patient's anesthetic plan and its attendant risks and benefits were discussed with the patient/family/POA. Questions were solicited and answers pro vided to the satisfaction of the patient/family/POA.
--- NOTE | 2024-11-08 07:29 | PM.IMHP ---
H&P: HPI History of Present Illness Date/Time: 11/08/24 07:29 Chief Complaint: Family history of colon polyps Narrative: This patient has family history of colorectal polyps. his father had when he was in his 30s. The patient has been undergoing shelby Review of Systems Review of Systems: All systems reviewed & are unremarkable except as noted in HPI and below PMFSH Past Medical History Medical History History of PSVT (paroxysmal supraventricular tachycardia) COVID-19 positive 03-22-20 Testicular cancer Hypogonadism H/O pyloric stenosis Surgical History Surgical History History of orchiectomy H/O sinus surgery Hx of cholecystectomy H/O splenectomy Family History Family History Mother Heart disease Grandparent Breast cancer Mother Diabetes mellitus Hypertension Family history of elevated blood lipids Grandparent Carcinoma of colon Malignant neoplasm of prostate Father Colon polyp Other Family history of arthritis Family history of cardiovascular disease Social History Social History Smoking status: Never smoker Alcohol intake: never Substance use type: does not use Lack of Transportation: No Lack of Food: Never True Current Housing: I Have Housing Concerned About Future Housing: No Difficulty Paying Gas/Electric Bills: No Difficulty Paying for Meds: No Currently Unemployed: No Education: Bachelor's Degree Difficulty w/ Childcare or Family Care: No Living arrangements: with family Gender identity (if verbalized by the patient): Male Spiritual care concerns: No Agree to blood products: Yes Meds Home Medications and Allergies Home Medications ?Medication ?Instructions ?Recorded ?Confirmed ?Type clomiphene citrate 50 mg tablet 25 mg PO DAILY 04/07/19 10/21/24 History esomeprazole magnesium 40 mg 40 mg PO BID 04/07/19 11/08/24 History capsule,delayed release (Nexium) tadalafil 5 mg tablet 5 mg PO ONCE 01/02/22 10/21/24 History losartan 50 mg tablet 50 mg PO DAILY 02/22/22 10/21/24 History benzonatate 200 mg capsule See Rx Instructions .Route 05/04/24 10/21/24 Rx .COMPLEX #60 caps loratadine-pseudoephedrine ER 10 1 tablet PO DAILY #90 tabs 09/16/24 10/21/24 Rx mg-240 mg tablet,extended [id number] (Claritin-D 24 Hour) fluconazole 150 mg tablet 150 mg PO WEEKLY #4 tabs 09/21/24 10/21/24 Rx nystatin 100,000 unit/gram topical 1 applic topical DAILY #30 grams 09/21/24 10/21/24 Rx cream azelastine 137 mcg-fluticasone 50 See Rx Instructions .Route 09/28/24 10/21/24 Rx mcg/spray nasal spray .COMPLEX #23 grams metoprolol succinate 100 mg 100 mg PO DAILY #90 tabs 09/28/24 10/21/24 Rx tablet,extended release 24 hr triamterene 37.5 See Rx Instructions .Route 09/28/24 10/21/24 Rx mg-hydrochlorothiazide 25 mg tablet .COMPLEX #45 tabs Allergies Allergy/AdvReac Type Severity Reaction Status Date / Time clarithromycin Allergy Mild RECTAL Verified 11/08/24 06:19 BLEEDING fluticasone Allergy Unknown Unknown Verified 11/08/24 06:19 montelukast Allergy Unknown headaches Verified 11/08/24 06:19 salmeterol (Advair Diskus) Allergy Unknown Unknown Verified 11/08/24 06:19 ANESTHESIA Allergy Unknown Vomiting Uncoded 11/08/24 06:19 for days Vital Signs Vital Signs - 24 hr 11/08/24 06:22 Temperature 97.6 F Pulse Rate 88 Respiratory Rate 18 Blood Pressure 145/91 H Pulse Oximetry 94 Oxygen Delivery Room Air Exam Const: General: cooperative and healthy appearing Resp: Effort & Inspection: normal respiratory effort and able to speak in complete sentences Auscultation: clear to auscultation bilaterally Cardio: Rate: regular rate Rhythm: regular rhythm GI: Inspection: normal to inspection GI Palp: No No hepatosplenomegaly present Auscultation: normal bowel sounds Rectal Exam: deferred Skin: General skin exam: normal color Psych: Appearance: grossly normal Mental Status: mental status grossly normal Assessment and Plan Assessment and plan (1) Colon cancer screening: Code(s): Z12.11 - Encounter for screening for malignant neoplasm of colon Status: Acute Assessment and Plan: The patient is deemed a good candidate for the procedure. Consent signed. Will proceed.
[2024-11-08 07:47] VITALS: BP 131/84; PULSE 84; RESP 84; O2SAT 94
[2024-11-08 07:57] VITALS: BP 129/85; PULSE 79; RESP 79; O2SAT 96
[2024-11-08 08:07] VITALS: BP 135/89; PULSE 71; RESP 71; O2SAT 99
== END 2024-11-08 08:10 | disposition home or self-care (01) ==
PROVIDERS: PCP Family Medicine; Referring Provider Family Medicine; Visit Provider Internal Medicine Gastroenterology
PROC: 0DJD8ZZ Inspection of Lower Intestinal Tract, Via Natural or Artificial Opening Endoscopic (ICD-10-PCS; CPT 45378; principal; 2024-11-08 07:30)
DX: Z12.11 Encounter for screening for malignant neoplasm of colon (principal); K57.30 Diverticulosis of large intestine without perforation or abscess without bleeding; K64.8 Other hemorrhoids; Z83.719 Family history of colon polyps, unspecified; E66.9 Obesity, unspecified; Z68.31 Body mass index [BMI] 31.0-31.9, adult
CPT/HCPCS: 45378; J2704; J7120

== ENCOUNTER 2025-03-23 09:02 | Outpatient (CLI) | payer OTHER, SELFPAY ==
--- OUTSIDE RECORDS SUMMARY | 2006-09-09 07:39 | XMS_ITS | Continuity of Care Document ---
Author Organization [facility] Address [address] [place] [address] [address] [place] [address] Phone Care Team Providers Care Funeral Location Manager Name Role Phone Aria Rowe Unavailable Unavailable Procedures Procedure Date Office/outpatient Visit, New Advance Directives Directive Yes / No Effective Date File Name No Information Encounters Encounter Description Practice Location Reason(s) For Visit Diagnoses Date Provider Providers Copied on Encounter Office/outpat ient Visit, [facility], [address] [place] [address] [address], [place], [place], [id number], tel:[phone] [facility] No Information [address] Aria. [address] , [address], [place], [address], [place]. tel:[phone] Referring Provider: Juno Beltran MD [place], [address] [place] [address], [address]. tel:[phone] Family History Family Member Type Diagnosis Age At Onset No Information Payers Payer name Insurance type Covered alliance party ID Authoriza tion(s) No Information Social History Type Description Quantity Date Captured Comments Sex Male Smoking Status No Information Chief Complaint And Reason For Visit No Information Reason For Referral Reason For Referral No Information History Of Present Illness Encounter Date Complaint History Of Prese nt Illness No Information Functional Status Date Functional Assessmen t No Information Instructions Date Instruction Additional Infor mation No Information Assessments Type Assessment Date No Information Patient Care Teams Name Effective Dates (start - stop) Status Members No Information
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
--- OUTSIDE RECORDS SUMMARY | 2025-03-23 09:46 | XMS_ITS | Clinical Summary ---
Author Organization [facility] Address [address] [facility] [place] [address] Care Team Providers Care Sinker Puller Name Role Phone Boone Palafox MD Primary Care Provider [phone] Allergies Active Allergy Reactions Criticality Noted Date Comments Clarithromycin Other (See Comments) 12/18/2017 Caused some rectal bleeding Tamsulosin Unknown 09/24/2018 Medications DYMISTA 137-50 mcg/spray [place], Non-Aerosol 8 Active cetirizine (ZyrTEC) 10 mg tablet Take 10 mg by mouth daily. Active esomeprazole (NexIUM) 20 mg Capsule, Delayed Release(E.C.) Take 20 mg by mouth daily before breakfast. Active CIALIS 5 mg tablet TK 1 T PO D 6 8 Active clomiPHENE citrate (CLOMID) 50 mg tabletIndicatio ns:pt taking half a pill daily Take 50 mg by mouth daily . 5 9 Active Klor-Con M10 10 mEq Extended Release tablet TAKE 1 TABLET BY MOUTH EVERY DAY 90 Tablet 1 2 Active verapamiL (VERELAN) 180 mg Sustained Release 24 hour capsule 240 mg. 2 Active celecoxib (CeleBREX) 200 mg capsule Take 200 mg by mouth daily. Active dexAMETHasone (DECADRON) 4 mg tablet Decadon 4 mg bid starting day before iron infusion and continue until day after last iron infusion 10 Tablet 4 Active secukinumab (Cosentyx) 150 mg/mL Syringe Inject 150 mg by subcutaneous injection one time only. Active Active Problems Problem Noted Date Diagnosed Date Lymphocytosis 07/16/2018 Iron deficiency anemia 12/18/2017 H/O testicular cancer 12/18/2017 Cancer Staging:Clinical: Unsigned Encounters Date Type Department Care Team Description 03/10/2025 Orders Only [facility] Oncology and Hematology - Walter Daysi Macdonald [address] [place] [address] Christophe Christensen MD 03/09/2025 External Device Data STL ABSTRACTION Provider, Abstract 03/08/2025 External Device Data [facility] ABSTRACTION Provider, Abstract 03/03/2025 Orders Only [facility] and Hematology - Walter [address] Macdonald [address] [place] [address] Christophe Christensen MD Elevated ferritin level (Primary Dx) 03/03/2025 Orders Only [facility]ematology - Walter Daysi Macdonald [address] [place] [address] Christophe Christensen MD 03/02/2025 Orders Only [facility]ematology - Walter [address] Macd[address] [place] [address] Christophe Christensen MD 03/01/2025 Telephone [facility]ematology - Walter Daysi Macdonald [address] [place] [address] Christophe Christensen MD Fatigue 02/01/2025 External Device Data STL ABSTRACTION Provider, Abstract 12/29/2024 Telephone [facility] Oncology and Hematology - Walter Daysi Macdonald [address] [place] [id number] Christophe Christensen MD Lab Results (Called patient to let them know our infusion center should be calling him to schedule an iron infusion per Dr. Christensen. Pre-Reg Email Sent. ) 12/28/2024 Orders Only [facility] On[facility] and Hematology - Walter Daysi Macdonald [address] Christophe Christensen MD 12/28/2024 Telephone [facility] Oncology and Hematology - Walter Daysi Macdonald [address] [place] [address] Christophe Christensen MD lab results for PCP from Last 3 Months Family History Medical History Relation Name Comments Healthy Brother 1 Healthy Brother 2 Healthy Brother 3 Asthma Father High Cholesterol Father Healthy Mother Migraines Mother Relation Name Status Comments Brother 1 Alive Brother 2 Alive Brother 3 Alive Father Alive Mother Alive Social History Tobacco Use Types Packs/Day Years Used Date Smoking Tobacco: Never Smokeless Tobacco: Never Tobacco Cessation:Counseling Given: Not Answered Alcohol Use Standard Drinks/Week Comments No 0 (1 standard drink = 0.6 oz pur e alcohol) Sex and Gender Information Value Date Recorded Sex Assigned at Not on file Legal Sex Male 1:37 PM CDT Gender Identity Not on file Sexual Orientation Not on file Last Filed Vital Signs Vital Sign Reading Time Taken Comments Blood Pressure 111/68 12/02/2024 2:25 PM CDT Pulse 72 12/02/2024 2:25 PM CDT Temperature 36.5 C (97.7 F) 12/02/2024 2:25 PM CDT Respiratory Rate 16 12/02/2024 2:25 PM CDT Oxygen Saturation 91% 12/02/2024 2:25 PM CDT Inhaled Oxygen Concentration - - Weight 101.2 kg (223 lb) 12/02/2024 2:25 PM CDT Height 177.8 cm (5' 10) 12/20/2022 9:24 AM CDT Body Mass Index 32 12/20/2022 9:24 AM CDT Plan of Treatment Upcoming Encounters Date Type Department Care Team (Late st Contact Info) Description 06/10/2025 10:30 AM MANAGEMENT INFORMATION SYSTEMS DIRECTOR Office Visit [facility] On[facility] and Hematology - Walter [address] [facility] [address] [place] [address] Christophe Christensen MD [address] [facility] [address] [place] [address] Health Maintenance Due Date Last Done Comments Pre-Diabetes and Diabetes Screening 1979 DTAP/TDAP/TD VACCINES (1 - Tdap) 1998 HEPATITIS B VACCINES (1 of 3 - 19+ 3-dose series) 1998 COLORECTAL SCREENING 02/12/2024 Colorectal Cancer Screening 02/12/2024 FIT-DNA Q 3 years 02/12/2024 FIT/FOBT Q 1 year 02/12/2024 Flex Sig/CT Colonography Q 5 years 02/12/2024 INFLUENZA VACCINE (#1) 2024 HPV VACCINES Aged Out No longer eligi ble based on patient's age to complete this topic Procedures Procedure Name Priority Date/Time Associated Diagnosis Comments HEREDITARY HEMOCHROMATOSIS DNA MUTATION ANALYSIS Routine 03/04/2025 12:28 PM CDT CBC WITH AUTODIFFERENTIAL Routine 2024 4:28 PM CDT COMPREHENSIVE METABOLIC PANEL Routine 03/02/2025 7:57 AM CDT IRON, TIBC, AND PERCENT SATURATION Routine 12/27/2024 11:32 AM CDT from Last 3 Months Results * HEREDITARY HEMOCHROMATOSIS DNA MUTATION ANALYSIS (03/04/2025 12:28 PM CDT) us Christophe Christensen MD CHEMISTRY ORDERABLES COM Final Result * CBC WITH AUTODIFFERENTIAL (03/02/2025 4:28 PM CDT) Blood us Christophe Christensen MD HEMATOLOGY ORDERABLES Final Res ult * COMPREHENSIVE METABOLIC PANEL (03/02/2025 7:57 AM CDT) Blood us Christophe Christensen MD CHEMISTRY ORDERABLES Final Resu lt * IRON, TIBC, AND PERCENT SATURATION (12/27/2024 11:32 AM CDT) Blood us Christophe Christensen MD CHEMISTRY ORDERABLES Final Resu lt from Last 3 Months Insurance [employer] CHOICE POS II AET[employer] CHOICE POS II Care Teams Sinker Puller Relationship Specialty Start Date End Date Boone Palafox MD [address] [place] [phone] PCP - General Family Practice 12/20/22
--- OUTSIDE RECORDS SUMMARY | 2025-03-23 09:46 | XMS_ITS | Clinical Summary ---
Author Organization [facility] Address [address] [place] [address] Phone Care Team Providers Care Director Of Teaching And Learning Name Role Phone Juno Beltran MD Primary Care Provider [phone] Allergies Active Allergy Reactions Criticality Noted Date Comments Clarithromycin Other (see Comments) 03/18/2020 Tamsulosin Unknown 09/24/2018 Medications cetirizine (ZyrTEC Allergy) 10 MG Tablet Take 10 mg by mouth daily. Active loratadine-pseud oephedrine (Claritin-D 24 Hour) 10-240 MG TABLET SR 24 HR Take 1 Tab by mouth daily. Active metoprolol Succinate (TOPROL-XL) 50 MG TABLET SR 24 HR Take 50 mg by mouth daily. Active clomiPHENE Citrate (CLOMID PO) Take 1 Tab by mouth 2 times daily. Active esomeprazole (NexIUM) 20 MG CAPSULE DELAYED RELEASE Take 20 mg by mouth. Active Active Problems No known active problems Social History Tobacco Use Types Packs/Day Years Used Date Smoking Tobacco: Never Smokeless Tobacco: Never Sex and Gender Information Value Date Recorded Sex Assigned at Not on file Legal Sex Male 12:45 PM BURNISHER Gender Identity Not on file Sexual Orientation Not on file Last Filed Vital Signs Vital Sign Reading Time Taken Comments Blood Pressure 138/78 03/22/2020 3:56 PM BURNISHER Pulse 83 03/22/2020 3:56 PM BURNISHER Temperature 36.3 C (97.3 F) 03/22/2020 3:56 PM BURNISHER Respiratory Rate 20 03/22/2020 3:56 PM BURNISHER Oxygen Saturation 96% 03/22/2020 3:56 PM BURNISHER Inhaled Oxygen Concentration - - Weight - - Height - - Body Mass Index - - Plan of Treatment Health Maintenance Due Date Last Done Comments Hepatitis C Virus (HCV) Screening 1979 TdaP Immunization 1979 Hepatitis B Immunization (1 of 3 - 19+ 3-dose series) 1998 Cologuard 02/12/2024 Colonoscopy 02/12/2024 Colorectal Cancer Screening 02/12/2024 Immunochemical Fecal Occult Blood 02/12/2024 Influenza Immunization (#1) 2025 SARS-COV-2 Immunization (2 - season) 2025 01/16/2021 Respiratory Syncytial Virus (RSV) Immunization (Adult) (1 - 1-dose 75+ series) 2054 DTaP/Tdap/Td Immunization Discontinued 1981, 05/09/1981, 04/05/1981, Additional history exists Pneumococcal Immunization Combined Aged Out 12/11/1995 No longer eligible based on patient's age to complete this topic Human Papillomavirus (HPV) Immunization Aged Out No longer eligible based on patient's age to complete this topic Meningococcal Immunization (ACWY) Aged Out No longer eligible based on patient's age to complete this topic Rotavirus Immunization Aged Out No lo nger eligible based on patient's age to complete this topic Care Teams Director Of Teaching And Learning Relationship Specialty Start Date End Date Juno Beltran MD [address] [place] [address] PCP - General Family Medicine 03/18/20
--- OUTSIDE RECORDS SUMMARY | 2025-03-23 09:46 | XMS_ITS | Patient Health Record ---
Author Organization [facility] jack Address [address] [place] [address] Care Team Providers Care Boat Washer Name Role Phone Boone Palafox MD Primary Care Provider Rj MoranMaricelg Unavailable [phone] Allergies Allergen (clinical drug ingredient) Drug/Non Drug Allergy documented on EMR Reaction Allergy Type Onset Date Status clarithromycin Clarithromycin Unknown Drug Allergy Active tamsulosin Tamsulosin Unknown Drug Allergy Activ e Results Component Value Reference Range Notes eGFR Reviewed date:11/07/2024 08:55:57 PM Interpretation: Performing Lab:[facility] , [address] [facility] [address] Notes/Report: eGFR >90 >=60 mL/min/1.73 m2 Interpretive Data Reference Interval Normal >/= 90 mL/min/1.73m2 Mildly decreased* 60 - 89 mL/min/1.73m2 Mildly to moderately decreased 45 - 59 mL/min/1.73m2 Moderately to severely decreased 30 - 44 mL/min/1.73m2 Severely decreased 15 - 29 mL/min/1.73m2 Kidney Failure < 15 mL/min/1.73m2 *Relative to young adult level Estimated glomerular filtration rate is determined by the 2020 CKD-EPI equation recommended by the National Kidney Foundation (A Unifying Approach to GFR Estimation: Recommendations of the NKF-ASK Task Force on Reassessing the Inclusion of Race in Diagnosing Kidney Disease, JASN 2020). The CKD-EPI equation should not be used for patients with unstable renal function and has not been validated in children and those over 70. Current interpretive data was last reviewed 2021. Differential Automated Reviewed date:11/07/2024 08:55:57 PM Interpretation: Performing Lab:[facility] , [address] [facility]. [place] [address] Notes/Report: Neut Abs 6.01 1.50-6.50 K/cumm ImmGran Abs 0.04 0.00-0.10 K/cumm Lymphocyte Abs 3.11 0.80-3.30 K/cumm Coryell Abs 1.10 0.20-0.80 K/cumm Eos Abs 0.15 0.00-0.50 K/cumm Baso Abs 0.05 0.00-0.10 K/cumm Neut Pct 57.5 Interpretive Data Percent cell count reference ranges are not reported, since discordance with absolute values may lead to misinterpretation of CBC data. Current Interpretive Data was last revised on 2017. ImmGran Pct 0.4 Interpretive Data Percent cell count reference ranges are not reported, since discordance with absolute values may lead to misinterpretation of CBC data. Current Interpretive Data was last revised on 2017. Lymph Pct 29.7 Interpretive Data Percent cell count reference ranges are not reported, since discordance with absolute values may lead to misinterpretation of CBC data. Current Interpretive Data was last revised on 2017. Coryell Pct 10.5 Interpretive Data Percent cell count reference ranges are not reported, since discordance with absolute values may lead to misinterpretation of CBC data. Current Interpretive Data was last revised on 2017. Eos Pct 1.4 Interpretive Data Percent cell count reference ranges are not reported, since discordance with absolute values may lead to misinterpretation of CBC data. Current Interpretive Data was last revised on 2017. Baso Pct 0.5 Interpretive Data Percent cell count reference ranges are not reported, since discordance with absolute values may lead to misinterpretation of CBC data. Current Interpretive Data was last revised on 2017. QTB Gold Reviewed date:11/09/2024 12:09:54 PM Interpretation: Performing Lab:[facility] , [address] [place] [address] Notes/Report: QuantiFERON TB Gold Negative Negative No interferon-gamma response to M. tuberculosis antigens was detected. Latent infection with M. tuberculosis is unlikely. A single negative result does not exclude infection with M. tuberculosis. In patients at high risk for M.tuberculosis infection, a second test should be considered in accordance with the 2017 ATS/IDSA/CDC Clinical Practice Guidelines for Diagnosis of Tuberculosis in Adults and Children [Kat JOSUE et. al. Clin. Infect. Dis. 2017;64(2):111-115]. The reference range for the 'TB1 Ag minus Nil Result' and 'TB2 Ag minus Nil Result' is an Interferon-gamma level <0.35 IU/mL. TB-Nil 0.00 TB2-Nil 0.00 Mitogen-Nil >10.00 NIL 0.03 Test Performed by: [facility] [address] [place] [address] Dipper Machine Operator: John Daniel Ph.D.; CLIA# [id number] Comprehensive metabolic pane l (CMP) Reviewed date:11/07/2024 08:55:29 PM Interpretation:Lab Result Generalized Performing Lab:[facility] , [address] [place] [address]. [facility] [address] Notes/Report: Sodium 140 135-145 mmol/L Plasma Potassium 4.3 3.3-4.9 mmol/L Chloride 101 97-110 mmol/L Total CO2 25 22-32 mmol/L Anion Gap 14 2-15 mmol/L BUN 10 6-25 mg/dL Creatinine 0.88 0.80-1.30 mg/dL Glucose 173 70-199 mg/dL Interpretive Data Fasting glucose >/= 126 mg/dl is diagnostic for diabetes. Fasting is defined as no caloric intake for at least 8 hours. Fasting glucose between 100 mg/dl to 125 mg/dl is diagnostic of prediabetes. In a patient with classic symptoms of hyperglycemia or hyperglycemic crisis, a random glucose >/= 200 mg/dl is diagnostic for diabetes. In the absence of unequivocal hyperglycemia, results should be confirmed by repeat testing. The classification and Diagnosis of Diabetes Diabetes Care 202; 46: S19-S40. Current interpretive data was last revised 2022. Total Calcium 9.5 8.5-10.3 mg/dL Total Bilirubin 0.2 0.1-1.2 mg/dL Plasma Total Protein 7.5 6.5-8.5 g/dL Albumin 4.2 3.5-5.0 g/dL Alkaline Phosphatase 85 40-130 Units/L ALT 30 7-55 Units/L AST 24 10-50 Units/L CBC w auto diff Reviewed date:11/07/2024 08:55:28 PM Interpretation:Lab Result Generalized Performing Lab:[facility] , [address] [place] [address]. [place] [address] Notes/Report: WBC 10.46 3.80-9.90 K/cumm Hgb 14.1 13.0-17.5 g/dL Hct 43.8 38.9-50.3 % Platelet Ct 486 150-400 K/cumm MPV 10.2 9.1-12.3 fL RBC 4.73 4.30-5.80 M/cumm MCV 92.6 81.3-96.4 fL MCH 29.8 27.1-33.3 pg MCHC 32.2 32.3-35.7 g/dL RDW CV 13.2 11.1-14.9 % RDW SD 44.7 35.7-48.1 fL NRBC Abs Auto 0.00 0.00-0.01 K/cumm Reason For Referral No Information Medications Medication SIG (Take, Route, Frequency, Duration) Notes Start Date End Date Status Claritin-D 24 Hour 10-240 MG 1 tablet Orally Once a day; Duration: 30 day(s) Active Clomid 50 MG take 1/2 tablet Oral ly Once a day; Duration: 5 day(s) Active NexIUM 40 MG 1 capsule Orally Onc e a day; Duration: 30 day(s) Active Metoprolol Tartrate 100 MG 1 tablet with food Orally once a day; Duration: 30 day(s) Active Secukinumab 150 MG/ML one injection Subcutaneous once a month starter 07/09/2024 Active Diclofenac Sodium 75 MG TAKE 1 TABLET BY MOUTH TWICE DAILY NEEDED FOR 30 DAYS; Duration: 30 Active Losartan Potassium 50 MG 1 tablet Orally Once a day; Duration: 30 day(s) Active Dymista 137-50 MCG/ACT 1 spray in each n ostril Nasally Twice a day; Duration: 30 day(s) Active Triamterene-HCTZ 37.5-25 MG 1 tablet in the morning Orally Once a day; Duration: 30 day(s) Active Social History Tobacco Use: Social History Observation Description Date Details (start date - stop date) Never Smoker NA - NA Household Question Answer Notes Marital status: Tobacco Control (Standard) Question Answer Notes Tobacco use: Nonsmoker Problems Problem Type SNOMED Code ICD Code Onset Dates Problem Status W/U Status Risk Notes Problem Chronic pain (93367397) Other chronic pain (G89.29) Active confirmed Problem Ankylosing spondylitis (7031622) Ankylosing spondylitis of multiple sites in spine (M45.0) Active confirmed Problem History of malignant neoplasm of testis (891949023) History of testicular cancer (Z85.47) Active confirmed Vital Signs Heart Rate 75 /min 03/11/2025 Temperature 98.4 degrees Fahrenheit 03/11/2025 Blood pressure diastolic 70 mm Hg 03/11/2025 Oximetry 96 % 03/11/2025 Height-cm 177.8 cm 03/11/2025 Weight-kg 104.42 kg 03/11/2025 Height 70 in 03/11/2025 Blood pressure systolic 110 mm Hg 03/11/2025 Weight 230.2 lbs 03/11/2025 BMI 33.03 kg/m2 03/11/2025 Encounters Encounter Location Date Provider Diagnosis [facility] [address] [facility] [address] [place] [address] 04/07/2024 Nury Du Ankylosing spondylit is of multiple sites in spine M45.0 ; Low back pain without sciatica, unspecified back pain laterality, unspecified chronicity M54.50 ; Pain in right hip M25.551 ; Pain in left hip M25.552 and History of testicular cancer Z85.47 [facility] [address] [place] [address] 07/09/2024 Nury Du Ankylosing spondylit is of multiple sites in spine M45.0 ; Low back pain without sciatica, unspecified back pain laterality, unspecified chronicity M54.50 ; Pain in right hip M25.551 ; Pain in left hip M25.552 and History of testicular cancer Z85.47 [facility] [address] [facility] [address] [place] [address] 09/08/2024 Nury Du Ankylosing spondylit is of multiple sites in spine M45.0 ; Low back pain without sciatica, unspecified back pain laterality, unspecified chronicity M54.50 ; Pain in right hip M25.551 ; Pain in left hip M25.552 and History of testicular cancer Z85.47 [facility] [address] [place] [address] 11/05/2024 Nury Du Ankylosing spondylit is of multiple sites in spine M45.0 ; Low back pain without sciatica, unspecified back pain laterality, unspecified chronicity M54.50 ; Pain in right hip M25.551 ; Pain in left hip M25.552 and History of testicular cancer Z85.47 [facility] [address] [place] [address] 12/01/2024 Nury Du Ankylosing spondylit is of multiple sites in spine M45.0 ; Acute cough R05.1 ; Low back pain without sciatica, unspecified back pain laterality, unspecified chronicity M54.50 ; Pain in right hip M25.551 ; Pain in left hip M25.552 and History of testicular cancer Z85.47 [facility] [address] [place] [address] 03/11/2025 Nury Du Ankylosing spondylit is of multiple sites in spine M45.0 ; Low back pain without sciatica, unspecified back pain laterality, unspecified chronicity M54.50 ; Pain in right hip M25.551 ; Pain in left hip M25.552 and History of testicular cancer Z85.47 [facility] [address] [place] [address] 03/23/2024 [facility] [address] [place] [address] 07/09/2024 [facility] [address] [place] [address] 07/09/2024 [facility] [address] [place] [address] 06/04/2024 [facility] [address] [place] [address] 07/15/2024 [facility] [address] [place] [address] 07/19/2024 [facility] [address] [facility] [address] [place] [address] 07/26/2024 [facility] [address] [facility] [address] [place] [address] 12/23/2024 Nury Assessments Encounter Date Diagnosis (ICD Code) Assessment Notes Treatment Notes Treatment Clinical Notes Section Notes 04/07/2024 Ankylosing spondylitis of multiple sites in spine (ICD-10 - M45.0) add gabapentin, continue mobic, return in 3 months 07/09/2024 Ankylosing spondylitis of multiple sites in spine (ICD-10 - M45.0) failed meloxicam , celebrex and etodolac, cannot take TNF blockers due to history of testicular cancer, will start cosentyx, change mobic to relafen, return in 2 months 09/08/2024 Ankylosing spondylitis of multiple sites in spine (ICD-10 - M45.0) coinitnue cosent yx, start diclofenac, return in 2 to 3 months 11/05/2024 Ankylosing spondylitis of multiple sites in spine (ICD-10 - M45.0) improving, cam nue cosentyx and diclofenac,labs today, return in 3 months 12/01/2024 Ankylosing spondylitis of multiple sites in spine (ICD-10 - M45.0) immunocompromise d (on cosentyx and 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), will order chest Xray 12/01/2024 Acute cough (ICD-10 - R05.1) immunocompromise d (on cosentyx and no spleen), will order chest Xray 03/11/2025 Ankylosing spondylitis of multiple sites in spine (ICD-10 - M45.0) stable for the m ost part, continue cosentyx and diclofenac, return in 3 months 03/11/2025 Low back pain without sciatica, unspecified back pain laterality, unspecified chronicity (ICD-10 - M54.50) stable for the m ost part, continue cosentyx and diclofenac, return in 3 months 12/01/2024 Low back pain without sciatica, unspecified back pain laterality, unspecified chronicity (ICD-10 - M54.50) immunocompromise d (on cosentyx and no spleen), will order chest Xray 03/11/2025 Pain in right hip (ICD-10 - M25.551) stable for the m ost part, continue cosentyx and diclofenac, return in 3 months 11/05/2024 Low back pain without sciatica, unspecified back pain laterality, unspecified chronicity (ICD-10 - M54.50) improving, cam nue cosentyx and diclofenac,labs today, return in 3 months 09/08/2024 Low back pain without sciatica, unspecified back pain laterality, unspecified chronicity (ICD-10 - M54.50) coinitnue cosent yx, start diclofenac, return in 2 to 3 months 07/09/2024 Low back pain without sciatica, unspecified back pain laterality, unspecified chronicity (ICD-10 - M54.50) failed meloxicam , celebrex and etodolac, cannot take TNF blockers due to history of testicular cancer, will start cosentyx, change mobic to relafen, return in 2 months 04/07/2024 Low back pain without sciatica, unspecified back pain laterality, unspecified chronicity (ICD-10 - M54.50) add gabapentin, continue mobic, return in 3 months 04/07/2024 Pain in right hip (ICD-10 - M25.551) add gabapentin, continue mobic, return in 3 months 07/09/2024 Pain in right hip (ICD-10 - M25.551) failed meloxicam , celebrex and etodolac, cannot take TNF blockers due to history of testicular cancer, will start cosentyx, change mobic to relafen, return in 2 months 09/08/2024 Pain in right hip (ICD-10 - M25.551) coinitnue cosent yx, start diclofenac, return in 2 to 3 months 11/05/2024 Pain in right hip (ICD-10 - M25.551) improving, cam nue cosentyx and diclofenac,labs today, return in 3 months 03/11/2025 Pain in left hip (ICD-10 - M25.552) stable for the m ost part, continue cosentyx and diclofenac, return in 3 months 12/01/2024 Pain in right hip (ICD-10 - M25.551) immunocompromise d (on cosentyx and no spleen), will order chest Xray 12/01/2024 Pain in left hip (ICD-10 - M25.552) immunocompromise d (on cosentyx and no spleen), will order chest Xray 11/05/2024 Pain in left hip (ICD-10 - M25.552) improving, cam nue cosentyx and diclofenac,labs today, return in 3 months 09/08/2024 Pain in left hip (ICD-10 - M25.552) coinitnue cosent yx, start diclofenac, return in 2 to 3 months 03/11/2025 History of testicular cancer (ICD-10 - Z85.47) stable for the m ost part, continue cosentyx and diclofenac, return in 3 months 07/09/2024 Pain in left hip (ICD-10 - M25.552) failed meloxicam , celebrex and etodolac, cannot take TNF blockers due to history of testicular cancer, will start cosentyx, change mobic to relafen, return in 2 months 04/07/2024 Pain in left hip (ICD-10 - M25.552) add gabapentin, continue mobic, return in 3 months 04/07/2024 History of testicular cancer (ICD-10 - Z85.47) add gabapentin, continue mobic, return in 3 months 07/09/2024 History of testicular cancer (ICD-10 - Z85.47) failed meloxicam , celebrex and etodolac, cannot take TNF blockers due to history of testicular cancer, will start cosentyx, change mobic to relafen, return in 2 months 09/08/2024 History of testicular cancer (ICD-10 - Z85.47) coinitnue cosent yx, start diclofenac, return in 2 to 3 months 11/05/2024 History of testicular cancer (ICD-10 - Z85.47) improving, cam nue cosentyx and diclofenac,labs today, return in 3 months 12/01/2024 History of testicular cancer (ICD-10 - Z85.47) immunocompromise d (on cosentyx and 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), will order chest Xray Plan Of Treatment Pending Test Test Name Order Date X ray : Hip, bilateral 04/17/2023 X ray : SI joint, left 05/06/2023 X ray : SI joint, right 05/06/2023 X ray : Spines, lumbar complete 05/06/20 Chest X-ray PA and lateral 12/01/2024 Creatine Kinase,Total,Serum 04/17/2023 Haptoglobin 04/17/2023 Complement C4, Serum 04/17/2023 G-6-PD, Quant, Blood and RBC 04/17/2023 CBC With Differential/Platelet Sedimentation Rate-Westergren 04/17/2023 Reticulocyte Count 04/17/2023 Najma', Direct 04/17/2023 Complement C3, Serum 04/17/2023 Rheumatoid Arthritis Factor 04/17/2023 C-Reactive Protein, Quant 04/17/2023 HLA B 27 Disease Association 04/17/2023 Sjogren's Ab, Anti-SS-A/-SS-B 04/17/2023 Antiscleroderma-70 Antibodies 04/17/2023 Anti-dsDNA Antibodies 04/17/2023 CCP IgG Antibodies 04/17/2023 VANE w/Reflex 04/17/2023 Hepatitis BsAg 04/17/2023 Hepatitis C antibody 04/17/2023 Chem-Comprehensive 04/17/2023 Wills Ab 04/17/2023 [facility]TER Antibodies 04/17/2023 QUANTIFERON(R)-TB GOLD PLUS, 1 TUBE (369 70) 10/07/2023 QUANTIFERON(R)-TB GOLD PLUS, 1 TUBE (369 70) 10/02/2023 CBC w auto diff 10/02/2023 Comprehensive metabolic panel (CMP) 09/10 Next Appt Details Provider Name:Nury Moran, 06/24 01:00:00 PM, [address] [facility] [address] [place], [address], Insurance Providers Payer Name Payer Address Payer Phone Subscriber Number Group Number Insured Name Patient Relationship to Insured Coverage Start Date Coverage End Date [employer] - Choice /OA [address] [place] [phone] [id number] Nunez Spouse - patient is the spouse of the insured Medical (General) History Medical History History ICD Code PSVT hypertension testicular cancer iron deficiency anemia Covid-19 asthma GERD BPH migraines fractures Surgical History Surgery Date(Month/Year) splenectomy orchiectomy cholecystectomy small intestine
--- NOTE | 2025-03-31 08:09 | WPDHOMESLEEP ---
Sleep Study - Home Unattended Date of Study: 03/23/25 Ordering Provider: Marcy Garcia APRN Interpreting Provider: Peggy Chaudhari, DO Home Sleep Study Type: Watch PAT Height: 1.8 m Weight: 99.79 kg Body Mass Index: 30.7 Neck Circumference (inches): 17 Emmet: 15 Reason for Sleep Study Excessive daytime sleepiness Sleep History The patient is a 45-year-old male that had a sleep study ordered by his primary care for evaluation of sleep apnea. The patient denies awakening from sleep short of breath. He rarely awakens at night with heartburn, belching or cough. He rarely snores but is never loud enough that others complain. He frequently has trouble sleeping when he has a cold. He rarely wakes up gasping for air throughout the night. He denies having breathing problems at night observed by himself or others. He occasionally sweats excessively at night. He occasionally has heart palpitations or irregular heartbeats during the night. He frequently falls asleep during the day but never while driving. He denies sleep paralysis and cataplexy. He occasionally has trouble at school or work due to sleepiness. He rarely experiences vivid dreamlike scenes upon awakening or falling asleep. He denies feeling afraid of going to sleep. He rarely has nightmares. He rarely remembers his dreams. He rarely has thoughts racing through his mind. He rarely feels sad or depressed. He rarely has anxiety. He occasionally has muscular tension. He rarely notices parts of his body jerk. He frequently kicks during the night. He occasionally has crawling and aching feelings in his legs and frequently has leg pain during the night. He rarely grinds his teeth during sleep and awakens with morning jaw pain. He is frequently bothered by pain during the day and occasionally awakened by pain during the night. He occasionally wakes up feeling stiff in the morning. He constantly wakes up with sore or achy muscles. He constantly wakes up with pain in the neck, spine and other joints. He goes to bed at 10:30 p.m. every night. He is able to fall asleep relatively quickly. He wakes up 2-3 times throughout the night for unknown reasons and is able to fall back asleep immediately. He wakes up at 5:30 a.m. a.m. on weekdays and 8:00 a.m. on weekends. He typically gets 7 hours of sleep per night. He will stay in bed for 5 minutes after waking up in the morning. He currently lives with his , 2 adult children and his parents. He denies consuming any caffeinated beverages within 2 hours of bedtime. He denies engaging in physical exercise before bedtime. He will watch television before falling asleep. He will take naps in afternoon or the evening and they are occasionally refreshing. He consumes 1 caffeinated beverage per day. He denies tobacco, alcohol and recreational drug use. [facility] Past Medical History Medical History History of PSVT (paroxysmal supraventricular tachycardia) COVID-19 positive 03-22-20 Testicular cancer Hypogonadism H/O pyloric stenosis Surgical History Surgical History History of orchiectomy H/O sinus surgery Hx of cholecystectomy H/O splenectomy Family History Family History Mother Heart disease Grandparent Breast cancer Mother Diabetes mellitus Hypertension Family history of elevated blood lipids Grandparent Carcinoma of colon Malignant neoplasm of prostate Father Colon polyp Other Family history of arthritis Family history of cardiovascular disease Social History Social History Smoking status: Never smoker Alcohol intake: never Substance use type: does not use Lack of Transportation: No Lack of Food: Never True Current Housing: I Have Housing Concerned About Future Housing: No Difficulty Paying Gas/Electric Bills: No Difficulty Paying for Meds: No Currently Unemployed: No Education: Bachelor's Degree Difficulty w/ Childcare or Family Care: No Living arrangements: with family Gender identity (if verbalized by the patient): Male Spiritual care concerns: No Agree to blood products: Yes Medications Home Medications ?Medication ?Instructions ?Recorded ?Confirmed ?Type clomiphene citrate 50 mg tablet 25 mg PO DAILY 04/07/19 03/08/25 History esomeprazole magnesium 40 mg 40 mg PO BID 04/07/19 03/08/25 History capsule,delayed release (Nexium) tadalafil 5 mg tablet 5 mg PO ONCE 01/02/22 03/08/25 History losartan 50 mg tablet 50 mg PO DAILY 02/22/22 03/08/25 History loratadine-pseudoephedrine ER 10 1 tablet PO DAILY #90 tabs 09/16/24 03/08/25 Rx mg-240 mg tablet,extended [id number] (Claritin-D 24 Hour) nystatin 100,000 unit/gram topical 1 applic topical DAILY #30 grams 09/21/24 03/08/25 Rx cream metoprolol succinate 100 mg 100 mg PO DAILY #90 tabs 09/28/24 03/08/25 Rx tablet,extended release 24 hr triamterene 37.5 See Rx Instructions .Route 09/28/24 03/08/25 Rx mg-hydrochlorothiazide 25 mg tablet .COMPLEX #45 tabs secukinumab 75 mg/0.5 mL 150 mg subcut WEEKLY 11/29/24 03/08/25 History subcutaneous syringe (Cosentyx) azelastine 137 mcg-fluticasone 50 See Rx Instructions .Route 01/24/25 03/08/25 Rx mcg/spray nasal spray .COMPLEX #23 grams amoxicillin 875 mg-potassium 1 tablet PO BID #20 tabs 03/18/25 Rx clavulanate 125 mg tablet Sleep Procedure The sleep study was completed using [employer] a technically adequate device with seven channels: peripheral arterial tone, actigraphy, body position, snore, respiratory movement, pulse oximetry, sleep staging, and heart rate. Prior to using the device, the patient received verbal and written instructions for its application and was provided with the help desk phone number for additional telephonic instruction with 24-hour availability of qualified personnel to answer questions. The study was scored using CMS guidelines. Sleep Architecture The total recording time is 7 hrs, 48 min. The total sleep time is 7 hrs, 11 min. Sleep latency is 16 minutes. REM latency is 59 minutes. The patient had 7 episodes of waking. Sleep architecture shows 10.6% deep sleep, 64.0% light sleep, and (as % Total Sleep Time) showed NREM (Light 64.0%; Deep 10.6%), and a 25.4% stage REM. The patient spent 68.0% of total sleep time in the supine position. Sleep efficiency was 92.09. Respiratory Analysis The overall AHI (pAHI 4%:) is 22.4.The overall AHI (pAHI 3%:) is 29.3. The central AHI is 5.7. The AHI was 22.9 in NREM and 48.2 in REM sleep. The AHI was 27.9 in Supine and 32.1 in Non-supine sleep. Percent of John Chang respirations is 0.0. Oximetry Data The oxygen desaturation index (JESSI 4%:) is 19.7. The mean saturation is 91%, and the lowest saturation is 84%. Time spent with saturation < 88% is 14.6 minutes. Snoring Profile Snoring average intensity is 41 dB. The patient snored above 45 decibels for 22.7 minutes, 5.3% of sleep time. Cardiac Profile The average pulse rate is 75 beats per minutes. The lowest pulse rate is 59 bpm. The highest pulse rate reported is 106 bpm. Atrial fibrillation was not detected. Premature beats occur <0.1 per minute. Assessment and Plan Assessment and Plan (1) DEIDRE (obstructive sleep apnea): Code(s): G47.33 - Obstructive sleep apnea (adult) (pediatric) Status: Acute Assessment and Plan: The patient had an overall AHI of 22.4 with desaturation down to 84%. This is consistent with moderate sleep apnea. The patient had a central apnea index of 5.7, which is elevated (normal <5). Due to the elevated central apnea index, the patient is not an ideal candidate for AutoPAP. AutoPAP can increase the frequency and severity of central apneas. I recommend that the patient have a CPAP Titration with the use of a hypnotic to ensure we pbtain enough sleep data and find an optimal pressure setting. The patient needs an echocardiogram to rule out cardiogenic causes of an elevated central apnea index. The patient's sleep history is suggestive of Restless Leg Syndrome. I recommend that the patient have a serum ferritin drawn for evaluation of iron deficiency anemia. If the patient has a serum ferritin less than 75 ng/mL, I recommend starting a daily iron supplement and a Vitamin C supplement for better absorption. If the serum ferritin is greater than 75 ng/mL, I recommend starting a dopamine agonist and titrating the dose until symptoms resolve. There are nonpharmacological methods to treat limb movements including daily exercise, stretching calf muscles before bed, avoiding excessive amounts of caffeine and alcohol, vitamin B supplementation, magnesium lotion massaged into legs before bed, and use of a weighted blanket. Data The data obtained during this sleep study is adequate for interpretation. Certification This sleep study has been reviewed by a board certified sleep medicine physician.
[2025-03-31 08:10] VITALS: BMI 30.7
== END 2025-03-28 09:10 | disposition home or self-care (01) ==
PROVIDERS: PCP Family Medicine; Visit Provider Nurse Practitioner Family
DX: G47.33 Obstructive sleep apnea (adult) (pediatric) (principal)
CPT/HCPCS: 95800